=== PATIENT | male | born 1950 | race Caucasian/White ===

== ENCOUNTER 2017-05-27 05:55 | Day surgery (SDC) | payer OTHER ==
[~2017-05-27] VITALS: Ht 175.3 cm; Wt 115.7 kg
[~2017-05-27 05:55] MED LIST: ATENOLOL25 MG PO; BUSPIRONE HCL15 MG PO; DOCUSATE SODIU100 MG PO; DULOXETINE HCL30 MG PO; GABAPENTIN400 MG PO; LIPITOR10 MG PO; LISINOPRIL10 MG PO; MAGNESIUM400 M1 PO; METFORMIN HCL1000 MG PO; MULTIVITAMINS1 EAC7 PO; PANTOPRAZOLE SO20 MG PO; ULTRAM50 MG PO
--- NOTE | 2017-05-27 07:48 | NUR ---
05/27/17 0748 Bruna Chung 2260-PATIENT ARRIVED TO PACU ON 4L NC O2 SAT 97% PATIENT AWAKE DENIES PAIN. REQUESTING COFFEE.
--- NOTE | 2017-05-27 12:06 | OR ---
[facility] [address], [place] [address] Signed DATE OF OPERATION: 05/27/2017 SURGEON: Austen Guevara MD UPPER ENDOSCOPY REPORT PREOPERATIVE DIAGNOSES: 1. Proximal to mid esophageal dysphagia. 2. Hiatal hernia. 3. History of peptic ulcer disease. 4. Diabetic and autonomic neuropathy. 5. History of surgery for obstructive sleep apnea. POSTOPERATIVE DIAGNOSES: 1. Mild diffuse gastritis. 2. Small hiatal hernia. 3. 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 PROCEDURE: EGD with CLOtest and biopsies of the antrum, body, stomach, and mid distal esophagus. ESTIMATED BLOOD LOSS: None. INDICATIONS: Tristin is a 67-year-old obese diabetic gentleman, who is having trouble with proximal to mid esophageal dysphagia. He mainly points to the area around the larynx. He said pills give him the most trouble, but even solid foods can give him trouble as well. Liquids are usually okay, but once and for all they give him trouble as well. He said it has been at least 6 months, may be longer. He spoke of EGD in 2016 and was said to have a hiatal hernia with 3 duodenal ulcers. He has been on a proton pump inhibitor and said he is feeling better. At that time, his H. pylori was negative. He also suffers with diabetic and autonomic neuropathy. He wonders if his throat is not numb. Also, in the past, he had surgery for obstructive sleep apnea. Given his current situation, he was asked to see me for repeat upper endoscopy. I had met with Tristni in the office and gave him a booklet on upper endoscopy. We looked at that together in detail. He understands the nature of the test along with the risks including, but not limited to gas bloating, crampy abdominal pain, bleeding, perforation requiring surgery, and missed diagnosis. He also understands the need for IV conscious sedation. He had expressed understanding and wished to proceed. Given Tristin's very extensive past medical history including his Electronically Signed By: AUSTEN GUEVARA MD 05/27/17 1206 PATIENT NAME: TRISTIN RAMIREZ OPERATIVE REPORT DATE OF : 50 PHYSICIAN: AUSTEN GUEVARA MD REPORT #: [id number] REPORT IS CONFIDENTIAL AND NOT TO BE RELEASED WITHOUT AUTHORIZATION [facility] [address], [place] [address] Signed obesity with a very thick heavy neck and full face dubon and mustache, we asked an anesthesia provider to help us with increased monitoring and sedation with propofol. That proved to be a daly decision. He had expressed understanding and wished to proceed. PROCEDURE NOTE: Tristin was taken into our endoscopy suite and placed in the supine semi-recumbent position. He was given IV sedation with propofol per nurse yarder. We had maintained airway throughout the entire procedure. We did use Hurricaine spray to anesthetize the posterior oropharynx. A bite block was utilized for the case. The adult gastroscope was introduced and we immediately encountered edematous arytenoids covered in thick tenacious mucus. I could see where he was having trouble getting food down his proximal esophagus. After this, it took me a minute to get the scope down the esophagus and out into the third portion of the duodenum. The duodenum and pyloric channel were unremarkable. No inflammation. No ulcers on this occasion. After this, the stomach was examined and he does have mild diffuse erythema in the stomach. We went ahead and took a biopsy of the antrum and body for pathologic review. We took another biopsy of the antrum for the CLOtest. No ulcerations in the stomach. Upon retroflexion of scope, he does have a small hiatal hernia. We could not appreciate any specific gastric or esophageal varices. He had just minimal disruption to his Z-line. No evidence of any Barrow's mucosa. He seemed to have just a little bit of irritation in the mid to distal esophagus and we went ahead and took a biopsy in that area as well. The proximal esophagus was unremarkable. Again, back in the oropharynx, we could see his edematous arytenoids and around the glottis heavy thick tenacious mucus. After this, the gastroscope was removed. Tristin tolerated his procedure quite well. RECOMMENDATIONS: I will see Tristin back in my office in 7 to 14 days to review his results. He probably needs to strongly consider evaluation and examination by ear, nose, and throat surgeon and possibly a speech therapist with a swallow evaluation. Austen Guevara MD ALB/MODL Electronically Signed By: AUSTEN GUEVARA MD 05/27/17 1206 PATIENT NAME: TRISTIN RAMIREZ OPERATIVE REPORT DATE OF : 50 PHYSICIAN: AUSTEN GUEVARA MD REPORT #: [id number] REPORT IS CONFIDENTIAL AND NOT TO BE RELEASED WITHOUT AUTHORIZATION [address] [address] Signed /[id number] cc: MD Howie Conner MD Electronically Signed By: AUSTEN GUEVARA MD 05/27/17 1206 PATIENT NAME: JAMESTRISTIN BONITA OPERATIVE REPORT DATE OF : 50 PHYSICIAN: AUSTEN GUEVARA MD REPORT #: [id number] REPORT IS CONFIDENTIAL AND NOT TO BE RELEASED WITHOUT AUTHORIZATION
== END 2017-05-27 08:45 | disposition home or self-care (01) ==
LOC: OPS 05:55 → DS 05:55
PROVIDERS: Colon & Rectal Surgery
PROC: 0DB78ZX Excision of Stomach, Pylorus, Via Natural or Artificial Opening Endoscopic, Diagnostic (ICD-10-PCS; 2017-05-27)
PROC: 0DB68ZX Excision of Stomach, Via Natural or Artificial Opening Endoscopic, Diagnostic (ICD-10-PCS; 2017-05-27)
PROC: 0DB28ZX Excision of Middle Esophagus, Via Natural or Artificial Opening Endoscopic, Diagnostic (ICD-10-PCS; principal; 2017-05-27 06:45)
DX: K29.50 Unspecified chronic gastritis without bleeding (principal); K44.9 Diaphragmatic hernia without obstruction or gangrene; I25.10 Atherosclerotic heart disease of native coronary artery without angina pectoris; I10 Essential (primary) hypertension; J44.9 Chronic obstructive pulmonary disease, unspecified; E78.5 Hyperlipidemia, unspecified; E03.9 Hypothyroidism, unspecified; E11.9 Type 2 diabetes mellitus without complications; F32.9 Major depressive disorder, single episode, unspecified; F43.10 Post-traumatic stress disorder, unspecified; H91.90 Unspecified hearing loss, unspecified ear; M19.90 Unspecified osteoarthritis, unspecified site; Z79.899 Other long term (current) drug therapy; Z95.1 Presence of aortocoronary bypass graft; Z98.890 Other specified postprocedural states; Z90.89 Acquired absence of other organs; Z98.52 Vasectomy status; Z87.891 Personal history of nicotine dependence; Z88.1 Allergy status to other antibiotic agents
CPT/HCPCS: 00740; 86677; J2704; J7120